=== PATIENT | female | born 1970 | race Two or more races ===

== ENCOUNTER 2019-10-22 23:22 | Emergency (ER) | payer MEDICAID, OTHER ==
[~2019-10-22] VITALS: Ht 160 cm; Wt 64.9 kg
[~2019-10-22 23:22] MED LIST: ASPI81TA31 PO; OMEG500C PO; VIT E PO
--- NOTE | 2019-10-22 23:38 | NUR ---
MD AT BEDSIDE FOR HX AND PHYSICAL PT IS ABLE TO SPEAK CLEAR AND COMPLETE SENTENCES, TANYA SON IS AT BEDSIDE TO INTERPRET C/O SOB AND CHEST DISCOMFORT 1HR CIRCULAR STUFFER DENIES TRAUMA NOR SURGERIES TO THE SITE STATES +COLDS/+COUGH FOR THE PAST FEW DAYS SMOKER -RECREATIONAL DRUGS SPO2 AT 100% EKG DONE, NSR Addendum: 10/23/19 at 0014 by DESHAUN DENIES RECENT TRAVELS DENIES NVD DENIES FEVERS/CHILLS MONITORED ACCORDINGLY SIDERAILSX2 UP BED AT LOWEST POSITION PT STATES COPING MEASURES FOR STRESS IS SMOKING
[2019-10-22] MEDS ORDERED: ONDANSETRON 4 MG/2 ML VIAL IV ONE (23:45)
[2019-10-22] MEDS ORDERED: ONDANSETRON 4 MG/2 ML VIAL ONE (23:48)
[2019-10-23 00:02] LABS: BASOPHILS % (AUTO) 0.4 % (0.0-2.0); EOSINOPHILS # (AUTO) 0.2 K/uL (0.0-0.7); EOSINOPHILS % (AUTO) 2.2 % (0.0-7.0); HEMATOCRIT 39.5 % (31.2-41.9); HEMOGLOBIN 13.1 g/dL (10.9-14.3); LYMPHOCYTES # (AUTO) 3.2 K/uL (20.0-40.0); LYMPHOCYTES % (AUTO) 44.1 % (20.5-51.5); MEAN CORPUSCULAR HEMOGLOBIN 29.6 uug (24.7-32.8); MEAN CORPUSCULAR HGB CONC 33 g/dL (32.3-35.6); MEAN CORPUSCULAR VOLUME 89.6 fL (75.5-95.3); MONOCYTES # (AUTO) 0.3 K/uL (2.0-10.0); MONOCYTES % (AUTO) 4.8 % (0.0-11.0); NEUTROPHILS # (AUTO) 3.5 K/uL (1.8-8.9); NEUTROPHILS % (AUTO) 48.5 % (38.5-71.5); PLATELET COUNT (AUTO) 193 K/uL (179-408); RED BLOOD CELL COUNT(AUTO) 4.41 MIL/uL (3.63-4.92); WHITE BLOOD COUNT (AUTO) 7.2 K/uL (3.8-11.8)
[2019-10-23 00:17] LABS: ALANINE AMINOTRANSFERASE 22 U/L (14-59); ALKALINE PHOSPHATASE 39 U/L (50-136); ASPARTATE AMINOTRANSFERASE 14 U/L (15-37); BILIRUBIN,DIRECT < 0.1 mg/dL (0.0-0.2); BILIRUBIN,TOTAL 0.2 mg/dL (0.2-1.0); CARBON DIOXIDE 26 mmol/L (21-32); CHLORIDE 102 mmol/L (98-107); CREATININE 0.7 mg/dL (0.6-1.3); GLUCOSE 88 mg/dL (74-106); POTASSIUM 3.7 mmol/L (3.5-5.1); TOTAL PROTEIN, SERUM 7.8 g/dL (6.4-8.2); UREA NITROGEN, BLOOD 15 mg/dL (7-18)
--- NOTE | 2019-10-23 00:20 | NUR ---
SYSTEMS TECHNOLOGIST AT BEDSIDE FOR CXR
--- NOTE | 2019-10-23 00:28 | NUR ---
MD AT BEDSIDE FOR UPDATE CXR AND BOTH LUNGFIELDS ARE CLEAR EKG CLEARED PT IS AOX4 NO RESPIRATORY DISTRESS NO APPARENT DISTRESS
--- NOTE | 2019-10-23 01:12 | NUR ---
PT STATES SHE FEELS BETTER NOW DENIES PAIN NOT IN RESPIRATORY DISTRESS NOT IN APPARENT DISTRESS MONITORED ACCORDINGLY
--- NOTE | 2019-10-23 01:37 | NUR ---
Patient discharged to home in stable conditon. Written and verbal after care instructions given. Patient verbalizes understanding of instructions. ALL BELONGINGS W/ PT AMBULATORY W/ STABLE GAIT IV SALINE LOCK DC, DRESSED SON WILL DRIVE
[2019-10-23 01:38] VITALS: BP 112/72
== END 2019-10-23 01:39 | disposition home or self-care (01) ==
LOC: ER 23:23
DX: R07.89 Other chest pain (principal); F41.9 Anxiety disorder, unspecified; J06.9 Acute upper respiratory infection, unspecified; F17.290 Nicotine dependence, other tobacco product, uncomplicated; Z79.82 Long term (current) use of aspirin; Z79.899 Other long term (current) drug therapy
CPT/HCPCS: 36415 ×2; 71045; 80048; 80076; 83690; 83880; 84484 ×2; 84702; 85025; 85730; 93005; 96374; 99284; 99406; J2405; 70030-TC; A4663